=== PATIENT | female | born 1990 | race Caucasian/White ===

== ENCOUNTER → 2016-12-04 | Day surgery (SDC) | payer BC ==
[~2016-12-04] MED LIST: Lactated Ringers 1,000 ML IV SCH; Propofol 200 MG/20 ML SDV IV ONE
[2016-12-04 08:28] VITALS: BP 128/90
--- NOTE | 2016-12-04 12:37 | OR ---
DATE OF OPERATION: 12/04/2016 PREOPERATIVE DIAGNOSIS: GASTROESOPHAGEAL REFLUX DISEASE. POSTOPERATIVE DIAGNOSIS: GASTROESOPHAGEAL REFLUX DISEASE. SURGEON: Salvador Roldan MD PROCEDURE: ESOPHAGOGASTRODUODENOSCOPY WITH BIOPSIES X2, JANIE. ANESTHESIA: PAI GOW MANAGER due to severe reflux. COMPLICATIONS: None. SPECIMEN: 1. Antral biopsy x2. 2. JANIE. FINDINGS: 1. Full-length EGD. 2. Mild antral gastritis without erosion or ulceration. 3. Small hiatal hernia with spontaneous GERD without associated esophagitis. RECOMMENDATIONS: Appropriate medical care and follow up with primary physician in the next 2 weeks. Lifestyle modification including avoidance of nicotine, caffeine, and alcohol. We will put the patient on a trial of proton pump inhibitor. INDICATIONS: The patient was in for routine physical, admitted to having some reflux issues. Dr. Mayer sent her for EGD. DESCRIPTION OF PROCEDURE: The patient was prepped and draped, placed in left lateral decubitus position. A lubricated Olympus gastroscope was inserted over a bit and easily advanced to the cricopharyngeus area and intubated in the esophagus. Esophageal lining was benign in its entire course. The Z-line was crisp and sharp around 38 cm. A mild hiatal hernia was present with spontaneous GERD but no esophagitis, stricturing, ulceration, or Stephens's changes. The scope was advanced into the stomach through the pylorus and into the third portion of duodenum and the duodenal bulb were completely benign. The scope was brought back into the stomach and retroflexed. The upper fundus and cardia were unremarkable. A small hiatal hernia was seen from below. Upon straightening of the scope, we were able to easily visualize the rest of the gastric lining including the rest of the fundus and antrum. Some mild antral gastritis present. No ulcerations or erosions, biopsies x2 along with a CLOtest were taken. Air was then suctioned from the stomach. The scope was removed without complication. LINDSEY/JHOANA /[id number]
== END ==
LOC: CC.SDS 07:05
PROVIDERS: ATTEND Family Medicine
DX: K29.50 Unspecified chronic gastritis without bleeding (principal); K44.9 Diaphragmatic hernia without obstruction or gangrene; K21.9 Gastro-esophageal reflux disease without esophagitis; F32.9 Major depressive disorder, single episode, unspecified; I10 Essential (primary) hypertension; E78.5 Hyperlipidemia, unspecified; E55.9 Vitamin D deficiency, unspecified; Z79.899 Other long term (current) drug therapy; Z90.49 Acquired absence of other specified parts of digestive tract; Z98.890 Other specified postprocedural states; Z87.891 Personal history of nicotine dependence; Z72.0 Tobacco use
CPT/HCPCS: 36415; 43239; 84703; J7120; 87081; J2704

== ENCOUNTER 2017-08-23 10:45 | Day surgery (SDC) | payer BC ==
[~2017-08-23 10:45] MED LIST changes: -Propofol 200 MG/20 ML SDV IV ONE; +ceFAZolin 1 GM Vial IVPUSH ONE
[2017-08-23] MEDS ORDERED: Midazolam 1 MG/ML 2 ML SDV IV ONE (10:46)
[2017-08-23] MEDS ORDERED: Rocuronium 50 MG/5 ML Vial IV ONE (10:46)
[2017-08-23] MEDS ORDERED: Propofol 200 MG/20 ML SDV IV ONE (10:46)
[2017-08-23] MEDS ORDERED: Ketorolac 30 MG/ML SDV IVPUSH ONE (10:46)
[2017-08-23] MEDS ORDERED: Dexamethasone 4 MG/ML SDV IV ONE (10:46)
[2017-08-23] MEDS ORDERED: Ondansetron 4 MG/2 ML SDV IV ONE (10:46)
[2017-08-23] MEDS ORDERED: Glycopyrrolate 0.2 MG/ML SDV IVPUSH ONE (10:46)
[2017-08-23] MEDS ORDERED: Neostigmine Methylsulfate 10 MG/10 ML MDV IV ONE (10:46)
[2017-08-23] MEDS ORDERED: fentaNYL 100 MCG/2 ML SDV IV ONE (10:46)
[2017-08-23] MEDS ORDERED: Bupivacaine 0.25% 10 ML SDV ONE (10:58)
[2017-08-23] MEDS ORDERED: Lidocaine 2% 20 ML MDV ONE (10:58)
[2017-08-23] MEDS: Lactated Ringers 1,000 ML IV SCH ×2 (11:46→20:15)
[2017-08-23] MEDS ORDERED: fentaNYL 100 MCG/2 ML SDV IVPUSH PRN (13:58)
[2017-08-23] MEDS ORDERED: Ondansetron 4 MG/2 ML SDV IVPUSH PRN (13:58)
[2017-08-23] MEDS ORDERED: Bupivacaine 0.25% 10 ML SDV INJECT ONE (13:58)
[2017-08-23] MEDS ORDERED: Lidocaine 2% 20 ML MDV INJECT ONE (13:58)
[2017-08-23] MEDS: Acetaminophen/HYDROcodone 325-5 MG Tab PO PRN ×2 (15:44→20:15)
[2017-08-24] MEDS: Acetaminophen/HYDROcodone 325-5 MG Tab PO PRN ×2 (04:39→08:29)
[2017-08-24] MEDS: Lactated Ringers 1,000 ML IV SCH (06:51)
--- NOTE | 2017-08-24 07:27 | OR ---
DATE OF OPERATION: 08/23/2017 PREOPERATIVE DIAGNOSIS: GASTROESOPHAGEAL REFLUX DISEASE. POSTOPERATIVE DIAGNOSIS: GASTROESOPHAGEAL REFLUX DISEASE. SURGEON: Anup Matute MD OPERATION PERFORMED: Laparoscopic Kev fundoplication. ANESTHESIA: General. DESCRIPTION OF PROCEDURE: After patient was anesthetized satisfactorily, patient's abdomen was prepped with iodoform. Patient was given sterile drapes. A small skin incision was made in the midline, it was carried down through skin, subcutaneous tissue, down through deep fascia. Deep fascia and peritoneum were opened. An 11 mm blunt trocar was introduced. CO2 gas was insufflated. Then, under direct camera vision, another 12 mm trocar was introduced and two 12 mm trocars were introduced in the right upper quadrant, two in the left upper quadrant. A liver retractor was introduced and left lobe of the liver was retracted. Stomach was held in position with help of a Eryn. Then, gastrohepatic ligament was divided with the help of LigaSure. Dissection was carried out around the diaphragm. The patient does not have a hiatal hernia. Dissection was carried out. The esophagus was dissected. The right and left crux of the diaphragm were dissected out. Then, short gastric vessels around the fundus were divided with the help of LigaSure. Fundus was completely mobilized. It was quite stuck to the liver and diaphragm. It was taken down completely. Then, a window was created connecting the right side with the left side. The fundus was brought out through this window from the left side to the right side to do a wrap-around the lower end of the esophagus, when Orellana dilator, size 56-Mongolian, was passed down, the light could be visualized. Then, using zero Ethibond sutures, sutures were placed between the stomach, esophagus, and stomach to do the wrap around. These sutures were ligated satisfactorily, three stitches were placed, and these stitches were ligated satisfactorily, thus completing the Kve fundoplication. Then, wraparound was anchored to the crux of the diaphragm using 0 Ethibond suture. Hemostasis was satisfactory. CO2 gas was desufflated out. The liver retractor was removed so was the dilator removed, and various trocars were then removed, and deep fascia was closed with 0 Ethibond running sutures. Skin was closed with coty. The patient was given sterile dressing. She tolerated the procedure well and left the operating room in satisfactory condition. IK/MODL /[id number]
[2017-08-24 11:09] VITALS: BP 114/71
== END 2017-08-24 09:50 | disposition home or self-care (01) ==
LOC: CC.SDS 10:45
PROVIDERS: ATTEND Surgery
DX: K21.9 Gastro-esophageal reflux disease without esophagitis (principal); I10 Essential (primary) hypertension; F32.9 Major depressive disorder, single episode, unspecified; E78.5 Hyperlipidemia, unspecified; E55.9 Vitamin D deficiency, unspecified; Z79.899 Other long term (current) drug therapy; Z90.49 Acquired absence of other specified parts of digestive tract; Z87.891 Personal history of nicotine dependence
CPT/HCPCS: 36415; 43280; 84703; A9270; J0690; J1100; J1885; J2250; J2405; J2704; J2710; J3010; J7120

== ENCOUNTER 2021-02-21 11:04 | Emergency (ER) | payer BC ==
[2021-02-21 11:19] VITALS: BP 108/74; PULSE 72
[2021-02-21 11:40] LABS: CHLORIDE,CL 102 mEq/L (98-106); SODIUM,NA 136 mEq/L (136-145)
--- NOTE | 2021-02-21 11:51 | EDM.PDOC ---
ED HPI GENERAL MEDICAL PROBLEM - General Chief Complaint: General Stated Complaint: side/back pain Time Seen by Provider: 02/21/21 11:05 Source of Information: Reports: Patient, RN History Limitations: Reports: No Limitations - History of Present Illness INITIAL COMMENTS - FREE TEXT/NARRATIVE: States that she was in [place] this AM and was having dysuria and pain and she called Dr. Parra as she is her OB provider. She ordered a UA and was told that she had UTI and was sent script for cephalexin. She was not seen. She did show me her UA report of +blood and WBC's. On the drive back home the pain in her right flank became worse and she has constant dull pain with sharp stabbing pain in the right flank that will radiate down into the groin at times. She has not taken anything for this. She does feel baby moving. No diarrhea or vomiting. She is always nauseated and that has not changed at all. NO fever that she can tell. Onset: Today Location: Reports: Abdomen Quality: Reports: Ache, Stabbing r flank Pain Score (Numeric/FACES): 7 - Related Data Allergies Allergy/AdvReac Type Severity Reaction Status Date / Time No Known Allergies Allergy Verified 02/21/21 11:19 Home Meds: Home Meds Multivitamin with Minerals [Multiple Vitamin] 1 tab PO DAILY 12/03/16 [History] cephALEXin [Cephalexin] 500 mg PO BID 02/21/21 [History] Past Medical History - Past Health History Medical/Surgical History: Denies Medical/Surgical History Social & Family History - Family History Family Medical History: No Pertinent Family History - Tobacco Use Tobacco Use Status *Q: Never Tobacco User Second Hand Smoke Exposure: No - Caffeine Use Caffeine Use: Reports: None - Recreational Drug Use Recreational Drug Use: No ED ROS GENERAL - Review of Systems Review Of Systems: See Below Constitutional: Denies: Fever, Chills GI/Abdominal: Reports: Abdominal Pain, Nausea. Denies: Constipation, Diarrhea, Vomiting : Reports: Flank Pain. Denies: Dysuria, Frequency, Hematuria Musculoskeletal: Reports: Back Pain ED EXAM, GENERAL - Physical Exam Exam: See Below Exam Limited By: No Limitations General Appearance: Alert, WD/WN, Moderate Distress Throat/Mouth: Normal Inspection, Normal Oropharynx Head: Atraumatic, Normocephalic Respiratory/Chest: No Respiratory Distress, Lungs Clear, Normal Breath Sounds Cardiovascular: Regular Rate, Rhythm GI/Abdominal: Normal Bowel Sounds, Soft, Other (Baby is actively moving. She has pain to the right flank that is sharp stabbing at times. It will occasionally radiate into the right groin area. No pain to the left. Not able to reproduce her pain with palpation or movement. No guarding or rebound) Neurological: Alert, Oriented Skin Exam: Warm, Dry, Intact Course - Vital Signs Last Recorded V/S: Last Vital Signs Temp 98.1 F 02/21/21 11:17 Pulse 72 02/21/21 11:17 Resp 18 02/21/21 11:17 BP 108/74 02/21/21 11:17 Pulse Ox 98 02/21/21 11:17 - Orders/Labs/Meds Labs: Laboratory Tests 02/21/21 02/21/21 Range/Units 11:22 11:22 WBC 12.0 H (4.0-11.0) 10^3/uL RBC 3.67 L (4.00-5.50) x10^6/uL Hgb 11.0 L (12.0-16.0) g/dL Hct 32.1 L (37.0-47.0) % MCV 87.5 (83.0-97.0) fL MCH 30.0 (27.0-32.0) pg MCHC 34.3 (32.0-36.0) g/dL RDW Coeff of Dmitri 12.5 (11.0-15.0) % Plt Count 253 (150-400) 10^3/uL Immature Gran % (Auto) 0.4 (0.0-4.9) % Neut % (Auto) 78.4 H (41-71) % Lymph % (Auto) 14.2 L (24-44) % Pike % (Auto) 6.1 (0-10) % Eos % (Auto) 0.7 (0-6) % Baso % (Auto) 0.2 (0-1) % Neut # (Auto) 9.45 H (1.80-8.00) x10^3/uL Lymph # (Auto) 1.71 (0.60-5.00) 10^3/uL Pike # (Auto) 0.73 (0.00-1.50) 10^3/uL Eos # (Auto) 0.08 (0.00-1.50) 10^3/uL Baso # (Auto) 0.02 (0.00-0.50) 10^3/uL Immature Gran # (Auto) 0.05 (0.00-0.49) 10^3/uL Sodium 136 (136-145) mEq/L Potassium 3.8 (3.5-5.0) mEq/L Chloride 102 (98-106) mEq/L Carbon Dioxide 26 (21-32) mmol/L BUN 11 (7-18) mg/dL Creatinine 0.7 (0.6-1.0) mg/dL Est Cr Clr Drug Dosing 112.20 mL/min Estimated GFR (MDRD) > 60 (>=60) mL/min Glucose 87 (75-99) mg/dL Calcium 8.6 (8.4-10.1) mg/dL Total Bilirubin 0.4 (0.0-1.0) mg/dL AST 15 (15-37) U/L ALT 18 (12-78) U/L Alkaline Phosphatase 75 (46-116) U/L Total Protein 6.8 (6.4-8.2) g/dL Albumin 2.9 L (3.4-5.0) g/dL - Re-Assessments/Exams Free Text/Narrative Re-Assessment/Exam: 02/21/21 12:[address] Parra in [place] and discussed pt with her. We are not able to do US here today. She did recommend she comes to [place] and get one done today. She asked that she goes to the ER and she will have orders there for her. Pt voices understanding as well as . She will be discharged from here and follow up with Dr. Parra. Departure - Departure Time of Disposition: 11:49 Disposition: Home, Self-Care 01 Condition: Good Clinical Impression: UTI, Urinary tract infectious disease - Discharge Information *PRESCRIPTION DRUG MONITORING PROGRAM REVIEWED*: Not Applicable *COPY OF PRESCRIPTION DRUG MONITORING REPORT IN PATIENT JUDAH: Not Applicable Forms: ED Department Discharge Additional Instructions: Go to the [place] ER and Dr. Parra will talk to there providers to get you set up for Ultrasound to rule out a kidney stone Push fluids as much as possible Sepsis Event Note (ED) - Evaluation Sepsis Screening Result: No Definite Risk - Focused Exam Vital Signs: Vital Signs Temp Pulse Resp BP Pulse Ox 02/21/21 11:17 98.1 F 72 18 108/74 98 - Problem List & Annotations (1) UTI, Urinary tract infectious disease SNOMED Code(s): 30822917 Code(s): N39.0 - URINARY TRACT INFECTION, SITE NOT SPECIFIED Status: Acute Priority: High - Problem List Review Problem List Initiated/Reviewed/Updated: Yes
== END 2021-02-21 12:14 | disposition home or self-care (01) ==
LOC: CC.ED 11:04
DX: N39.0 Urinary tract infection, site not specified (principal)
CPT/HCPCS: 36415; 80053; 85025; 99284

== ENCOUNTER → 2023-02-19 | Day surgery (SDC) | payer BC ==
[~2023-02-19] MED LIST changes: +Flumazenil 0.1 MG/ML 10 ML MDV ONE; +Ketamine 200 MG/20 ML MDV ONE; +Lidocaine 2% 20 ML MDV ONE; +Midazolam 1 MG/ML 2 ML SDV ONE; +Ondansetron 4 MG/2 ML SDV ONE; +Propofol 200 MG/20 ML SDV ONE; -ceFAZolin 1 GM Vial IVPUSH ONE; +fentaNYL 50 MCG/ML SDV ONE
[2023-02-19 12:23] VITALS: BP 122/76; PULSE 64
== END ==
LOC: CC.SDS 10:21
PROVIDERS: ATTEND Family Medicine
DX: K21.9 Gastro-esophageal reflux disease without esophagitis (principal); K29.50 Unspecified chronic gastritis without bleeding; K31.7 Polyp of stomach and duodenum; K52.9 Noninfective gastroenteritis and colitis, unspecified; I10 Essential (primary) hypertension; Z79.899 Other long term (current) drug therapy; Z90.49 Acquired absence of other specified parts of digestive tract; Z87.891 Personal history of nicotine dependence
CPT/HCPCS: 00813; 87081; J2250; J2405; J2704; J3010; J3490; J7120